=== PATIENT | female | born 2000 | race Caucasian/White ===

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

== ENCOUNTER 2024-11-14 10:55 | Emergency (ER) | payer MEDICAID, SELFPAY ==
[2024-11-14 10:56] VITALS: BP 144/84; PULSE 83; RESP 15; TEMP 36.8; O2SAT 100; BMI 21.2
--- NOTE | 2024-11-14 11:09 | EDS_ITS ---
HPI History of Present Illness Chief Complaint: Lower Extremity Injury PFSH PFSH Medical History no medical history Home Medications ?Medication ?Instructions ?Recorded ?Last Taken ?Type NK 11/14/24 Unknown History Allergy/AdvReac Type Severity Reaction Status Date / Time amoxicillin Allergy Mild Hives Verified 11/14/24 10:56 shrimp Allergy Angioedema Verified 11/14/24 10:56 Family History no significant family his Surgical History no surgical history Social History Smoking Status: Current some day smoker tobacco type: e-cigarettes EXAM Physical Exam Const Vital Signs: 11/14/24 10:56 Temperature 98.2 F Temperature Source Temporal Pulse Rate 83 Respiratory Rate 15 Blood Pressure 144/84 H Blood Pressure Mean 104 Pulse Ox 100 Oxygen Delivery Method Room Air Discharge Plan Triage Chief Complaint: Lower Extremity Injury ED Provider: Vladimir Wang Dx/Rx/DC Orders Prescriptions: No Action NK Primary Care Provider: Care Physician,No Primary Referrals: Care Physician,No Primary [Primary Care Provider] - Print Language: Lithuanian
--- NOTE | 2024-11-14 11:09 | ED.VIS.LOWEX ---
HPI History of Present Illness HPI Narrative: Patient presents with injury to her right fifth toe that occurred last night. Patient states she accidentally hit it on a door frame. Patient states her pain is sharp. Patient states it is worse with any movement. Patient states it is better with rest. Patient states she did have some paresthesias in her pinky toe last night but states these have resolved. Patient denies any other injuries. Chief Complaint: Lower Extremity Injury Informant: patient Occured/Mechanism Mechanism/Context: Yes blunt trauma Onset/Context/Timing Onset: Yesterday Context: Sudden Onset Timing: Continuous Quality of Pain: Sharp Location: Right fifth toe Worsened by: Movement Relieved by: Rest Associated Symptoms Associated Symptoms: Positive for Parasthesia (Last night but have resolved today); Negative for Weakness or Loss of Funtion PFSH PFSH Medical History no medical history no medical history Home Medications ?Medication ?Instructions ?Recorded ?Last Taken ?Type NK 11/14/24 Unknown History Allergy/AdvReac Type Severity Reaction Status Date / Time amoxicillin Allergy Mild Hives Verified 11/14/24 10:56 shrimp Allergy Angioedema Verified 11/14/24 10:56 Family History no significant family his Surgical History (Updated 11/14/24 @ 11:[address] Vladimir Wang DO) S/P ORIF (open reduction internal fixation) fracture Surgical History no surgical history Social History Smoking Status: Current some day smoker tobacco type: e-cigarettes ROS ROS ED Constitutional Constitutional ED: Denies chills or fever(s) Eyes Eyes: Denies blurry vision or change in vision ENT ENT ED: Denies rhinorrhea or sore throat Cardiovascular Cardiovascular: Denies chest pain or palpitations Respiratory/Chest Respiratory/Chest: Denies cough or dyspnea Gastrointestinal Gastrointestinal: Denies nausea or vomiting Genitourinary Genitourinary ED: Denies dysuria or hematuria Musculoskeletal Musculoskeletal: Denies back pain or neck pain Integumentary Denies abscess or rash Neurologic Neurologic: Denies headache(s) or weakness Allergic/Immunologic Allergic/Immunologic ED: Denies mouth swelling or urticaria EXAM Physical Exam Const Vital Signs: 11/14/24 10:56 Temperature 98.2 F Temperature Source Temporal Pulse Rate 83 Respiratory Rate 15 Blood Pressure 144/84 H Blood Pressure Mean 104 Pulse Ox 100 Oxygen Delivery Method Room Air Positive well nourished and well developed General Appearance ED: well developed and NAD HEENT Reports moist mucous membranes normocephalic and atraumatic Neck full ROM and supple Extremity Extremity Narrative: There is tenderness, edema, and ecchymosis over the right fifth toe and fifth metatarsal. There is no obvious deformity noted. Range of motion was limited in all motions of the right fifth toe secondary to pain. Sensation is intact to light touch in all digits. Capillary refill was less than 2 seconds in all digits. Neuro oriented x3, CN's II-XII intact bilaterally, moves all extremities and no sensory deficits noted Sensorium / Orientation: alert Motor Exam: strength 5/5 throughout Psych mental status grossly normal Skin no wounds MDM MDM MDM Narrative Medical decision making narrative: Differential diagnosis includes fracture, dislocation, and sprain. X-rays of the right foot will be obtained to assess for fracture or dislocation. Radiography Diagnostic Testing: Clinical Impression(s) from Imaging Studies Foot X-Ray 11/14/24 11:22 IMPRESSION: No acute abnormality is seen. Reading Location: [id number] X-rays of the right foot were obtained. There are 3 views. On my independent interpretation, there is a nondisplaced transverse fracture of the proximal phalanx of the right fifth toe. There is no dislocation noted. Radiologist also interpreted the x-rays and agrees. Treatment and Re-Evaluation Narrative: Nicotine cessation was discussed. Patient was given a dose of ibuprofen here. Patient was advised of her findings. Patient was given a postop shoe. The fourth and fifth toes were demetrius taped together. Patient was instructed to ice and elevate the right foot. Patient was instructed to follow-up with her primary care physician in 5 to 7 days. Patient was also given referral for podiatry. Patient was instructed to return if worse in any way. Patient understood and was agreeable with plan. All questions were answered. Discharge Plan Triage Chief Complaint: Lower Extremity Injury ED Provider: Vladimir Wang Dx/Rx/DC Orders Clinical Impression: Closed fracture of phalanx of right fifth toe, Nicotine vapor product user Instructions: ED Fracture, Toe, Closed Prescriptions: No Action NK Primary Care Provider: Care Physician,No Primary Referrals: Cassie Joy MD [Med Staff - Active Staff] - 5-7 Days Vinayak Franco DPM [Med Staff - Active Staff] - 5-7 Days Care Physician,No Primary [Primary Care Provider] - Print Language: Bengali Disposition Disposition: Home, Self Care
--- NOTE | 2024-11-14 11:22 | RAD_ITS ---
PROCEDURE: FOOT MIN 3 VIEWS REASON FOR EXAM: Injury to the 5th digit. TECHNIQUE: Three views of the right foot were obtained. COMPARISON: None. FINDINGS: RIGHT FOOT: No visible fracture. No suspicious bone lesion. Normal alignment. Soft tissues are unremarkable. RAD/Foot min 3 Views IMPRESSION: No acute abnormality is seen. Reading Location: [facility]
[2024-11-14] MEDS: Ibuprofen 600 MG Tablet PO (12:16)
== END 2024-11-14 12:18 | disposition home or self-care (01) ==
LOC: ED 11:45
PROVIDERS: Emergency Provider Emergency Medicine; Visit Provider Emergency Medicine
DX: S92.514A Nondisplaced fracture of proximal phalanx of right lesser toe(s), initial encounter for closed fracture (principal); W22.8XXA Striking against or struck by other objects, initial encounter; F17.290 Nicotine dependence, other tobacco product, uncomplicated
CPT/HCPCS: 73630; 99283

== ENCOUNTER 2024-11-16 11:55 | Emergency (ER) | payer MEDICAID, SELFPAY ==
[2024-11-16 11:56] VITALS: BP 158/85; PULSE 93; RESP 16; TEMP 36.6; O2SAT 100; BMI 22.5
--- NOTE | 2024-11-16 12:46 | ED.VIS.LOWEX ---
HPI History of Present Illness Chief Complaint: Lower Extremity Injury Informant: patient Narrative Narrative: Patient is a 24-year-old female who broke her right fifth toe 2 days ago and was seen in our ER. She was given a postop shoe. She works at [employer]. She was given outpatient podiatry follow-up. She states that as she has been wearing the postop shoe she is having increased pain of her right heel when she wears the shoe. She tries to wear any other shoes however she has increased pain over her toe. She is not sure what to do so she came back to the emergency room. She does note her postop shoe was a little small for her and her toes hangover. She does not have any crutches. She is been taking ibuprofen and Tylenol for pain relief. Denies any new injury. No other complaints or concerns at this time. She initially broke her toe when she ran into a door frame but the front of her foot. She states the bruising is a little bit worse at the base of her right fifth toe. No other complaints or concerns reported at this time. PFSH [facility] Home Medications ?Medication ?Instructions ?Recorded ?Last Taken ?Type NK 11/14/24 Unknown History Allergy/AdvReac Type Severity Reaction Status Date / Time amoxicillin Allergy Mild Hives Verified 11/16/24 11:56 shrimp Allergy Angioedema Verified 11/16/24 11:56 Surgical History S/P ORIF (open reduction internal fixation) fracture Social History Smoking Status: Current some day smoker tobacco type: e-cigarettes ROS ROS ED Constitutional Constitutional ED: Denies chills or fever(s) Musculoskeletal Musculoskeletal: Reports other Details: right heel and 5th toe pain Integumentary Reports other Details: bruising to right toe Neurologic Neurologic: Denies paresthesias or weakness Hematologic/Lymphatic Hematologic/Lymphatic: Denies easy bleeding or easy bruising EXAM Physical Exam Const Vital Signs: 11/16/24 11:56 Temperature 98 F Temperature Source Temporal Pulse Rate 93 Respiratory Rate 16 Blood Pressure 158/85 H Blood Pressure Mean 109 Pulse Ox 100 Oxygen Delivery Method Room Air Positive well nourished and well developed General Appearance ED: well developed and NAD Resp normal respiratory effort Cardio regular rate and regular rhythm Cardio Narrative: 2+ DP pulse on right. Normal cap refill of the right 5th toe. Extremity Extremity Narrative: Right lower extremity?no deformity. Normal Guerin test. Compartments soft to the right calf. Mild tenderness palpation diffusely over the right heel. No pinpoint tenderness over the insertion of the plantar fascia. Tenderness palpation with some mild swelling of the right fifth toe but no obvious deformity. Normal range of motion of the toes. Neuro oriented x3, moves all extremities and no sensory deficits noted Sensorium / Orientation: alert Motor Exam: Negative for general weakness Psych mental status grossly normal Skin Skin Narrative: Ecchymosis to the base of the right fifth toe. No large hematoma appreciated. No break in the skin appreciated. MDM MDM MDM Narrative Medical decision making narrative: Patient evaluated for continued pain of her right foot after right toe fracture. She is actually having more pain of her heel which seems to be associated with her postop shoe. Do not think this is plantar fasciitis. She did not have any trauma to the heel and I do not think she requires dedicated calcaneal or foot x-rays. She has had no new injury to her fifth toe and I do not think she requires a repeat x-ray of the toe. Will attempt demetrius taping the 3rd through 5th toes together to see if she tolerates other she is better. Will give her a larger postop she was well that hopefully is fitting better. Also give her crutches. Will give a work note for today and tomorrow as work seems to exacerbate her symptoms more. Encouraged to continue to follow-up as previously instructed with podiatry. Will continue alternating ibuprofen and Tylenol. She verbalized given understands this plan. Discharged home in stable condition peer Discharge Plan Triage Chief Complaint: Lower Extremity Injury ED Provider: Cathi Montes Dx/Rx/DC Orders Clinical Impression: Acute pain of right foot, Closed fracture of fifth toe of right foot with routine healing Instructions: ED Fracture, Toe, Closed Prescriptions: No Action NK Stand Alone Forms: ED Work / School Excuse Primary Care Provider: Care Physician,No Primary Referrals: Vinayak Franco DPM [Med Staff - Active Staff] - Care Physician,No Primary [Primary Care Provider] - Activity Restrictions/Additional Instructions: Tried demetrius taping the third fourth and fifth toes together as we discussed. We have given you a larger postop shoe hopefully will be more comfortable. Use crutches as needed for foot pain. Continue to elevate, rest and ice is much as possible. Continue taking up to 600 mg of ibuprofen every 6 hours as needed. Print Language: Estonian Disposition Disposition: Home, Self Care
== END 2024-11-16 12:57 | disposition home or self-care (01) ==
PROVIDERS: Emergency Provider Emergency Medicine; Visit Provider Emergency Medicine
DX: M79.671 Pain in right foot (principal); F17.290 Nicotine dependence, other tobacco product, uncomplicated; S92.504D Nondisplaced unspecified fracture of right lesser toe(s), subsequent encounter for fracture with routine healing; X58.XXXA Exposure to other specified factors, initial encounter
CPT/HCPCS: 99283

== ENCOUNTER 2025-01-04 11:01 | Emergency (ER) | payer SELFPAY ==
[2025-01-04 11:01] VITALS: BP 132/82; PULSE 90; RESP 18; TEMP 36.8; O2SAT 100; BMI 21.4
--- NOTE | 2025-01-04 11:08 | EX.ED.VIS.EY ---
HPI <SARA Gomez - Last Filed: 01/04/25 11:46> History of Present Illness Chief Complaint: Eye Problem Narrative Narrative: 24-year-old female developed redness and swelling of her left upper eyelid last evening which seemed worse this morning. She has no pain in the eye itself. No visual changes, fever, chills, or drainage from the eye. She does not wear glasses or contacts. She denies trauma to the eye or potential for foreign body. PFSH <SARA Gomez - Last Filed: 01/04/25 11:46> PFSH Home Medications ?Medication ?Instructions ?Recorded ?Last Taken ?Type cephalexin 500 mg capsule 500 mg PO Q6 7 days #28 CAPSULES 01/04/25 Unknown Rx Allergy/AdvReac Type Severity Reaction Status Date / Time amoxicillin Allergy Mild Hives Verified 01/04/25 11:02 shrimp Allergy Angioedema Verified 01/04/25 11:02 Surgical History S/P ORIF (open reduction internal fixation) fracture Social History Smoking Status: Current some day smoker tobacco type: e-cigarettes ROS <SARA Gomez Last Filed: 01/04/25 11:46> ROS ED ROS Narrative Constitutional: Negative for fever, chills, malaise. Eyes: Negative for visual change. Neuro: Negative for headache. EXAM <SARA Gomez Last Filed: 01/04/25 11:46> Physical Exam Narrative Exam Narrative: CONST: Patient sitting in no acute distress. EYES: Mild swelling and redness of the left upper eyelid. Normal conjunctiva, PERRL, EOMI without pain. There is a small area of excess tissue on the internal left lateral canthus which may be an early stye. No proptosis, no hyphema or hypopyon. NECK: Normal inspection. RESP: No respiratory distress, CTAB. CVS: Regular rate and rhythm, no murmur, no gallop. SKIN: Color normal, no rash, warm, dry, intact. EXTREMITIES: Normal appearance, no pedal edema. NEURO: Alert and answering questions appropriately. PSYCH: Normal affect. Const Vital Signs: 01/04/25 11:01 Temperature 98.2 F Temperature Source Oral Pulse Rate 90 Respiratory Rate 18 Blood Pressure 132/82 H Blood Pressure Mean 98 Pulse Ox 100 Oxygen Delivery Method Room Air [facility] <SARA Gomez - Last Filed: 01/04/25 11:46> [facility] Narrative Medical decision making narrative: Differential includes but not limited to: Chalazion, preseptal cellulitis, orbital cellulitis, conjunctivitis Patient has 2 days of left upper eyelid redness and swelling. She has no visual changes and does not wear glasses or contacts. She appears well nontoxic. Vital signs stable. Clinically this looks like early preseptal cellulitis. There is no visible stye. She has no systemic symptoms or pain with extraocular movements so I do not think this is orbital cellulitis. I prescribed Keflex with first dose given here and provided ophthalmology follow-up and discussed to return if any symptoms worsen. She was discharged in stable condition. <Dr. Vladimir Wang DO - Last Filed: 01/04/25 11:43> [facility] Treatment and Re-Evaluation Narrative: I have personally performed a face to face assessment of the patient and have reviewed the AUDRA Note. I performed a substantive portion of the visit including all aspects of the following. My jacob findings include: History: Patient presents with left upper eyelid redness and swelling that began yesterday. Patient states it is gradually gotten worse. Patient states it is constant. Patient admits to some mild pain over the left upper eyelid. Patient also admits to some bruising and redness. Patient denies any visual changes. Patient does not wear glasses or contacts Exam: Vital signs are stable. Patient is afebrile. Patient is in no acute distress. The left eye shows edema and erythema of the left upper eyelid. I do not visualize any corneal chalazion. Conjunctiva slightly injected on the left. Anterior chamber with air. Pupils are equal, round, and reactive to light bilaterally. Extraocular muscles are intact. There is no matting or crusting noted. There is no discharge or drainage. Medical Decision Making: Patient was advised this is the preseptal cellulitis. The patient does not have any pain with extraocular motion, I do not feel it is orbital cellulitis. It is only on the upper eyelid. Patient was given a prescription for Keflex. Patient instructed to use warm compresses. Patient was instructed to follow-up with her primary care physician in 3 to 5 days. Patient understood and was agreeable with the plan. All questions were answered. Discharge Plan Triage Chief Complaint: Eye Problem ED Midlevel Provider: Dena Doshi ED Provider: Vladimir Wang Dx/Rx/DC Orders Clinical Impression: Preseptal cellulitis of left eye Instructions: Cellulitis Dc Prescriptions: New cephalexin 500 mg capsule 500 mg PO Q6 7 Days Qty: 28 0RF Primary Care Provider: Care Physician,No Primary Referrals: Blayne Christiansen MD [Med Staff - Active Staff] - Care Physician,No Primary [Primary Care Provider] - Activity Restrictions/Additional Instructions: I prescribed antibiotics to cover cellulitis which is a skin infection. If symptoms worsen like if you develop fever, spreading redness or swelling, or changes to your vision please be reevaluated immediately. Print Language: Emirati Disposition Disposition: Home, Self Care Discharge Date/Time: 01/04/25 11:34
[2025-01-04] MEDS: Cephalexin 250 MG Capsule 500 MG PO (11:29)
== END 2025-01-04 11:34 | disposition home or self-care (01) ==
LOC: ED 11:26
PROVIDERS: Emergency Provider Emergency Medicine; Visit Provider Emergency Medicine
DX: L03.213 Periorbital cellulitis (principal); F17.290 Nicotine dependence, other tobacco product, uncomplicated
CPT/HCPCS: 99282